=== PATIENT | female | born 1990 | race Hispanic/Latino ===

== ENCOUNTER 2016-07-20 22:58 | Emergency (ER) | payer OTHER ==
[~2016-07-20] VITALS: Ht 152.4 cm; Wt 63.8 kg
[~2016-07-20 22:58] MED LIST: ADVIL,NUPRIN,M200 MG PO; ALBUTEROL SULF8.5 GM IH; ALBUTEROL17 GM IH; ANUSOL HC,ANUCO25 MG PR; BACTRIM,SEPT1 TABLET PO; CAMILA0.35 MG PO; CLEOCIN300 MG PO; COLACE100 MG PO; DICLEGIS DR 101 EACH PO; FERROUS SULFAT325 MG PO; FLINTSTONES1 EACH PO; HYDROCODON-ACE1 EAC7 PO; IBUPROFEN800 MG PO; KEFLEX500 MG PO; LITHIUM CARBON300 M1 PO; LORATADINE10 M2 PO; MACROBID100 MG PO; MOTRIN800 MG PO; NAPROSYN500 MG PO; NO HOME MEDS; Natalcare Rx,Pramile PO; PREDNISONE10 M1 PO; PRENATAL TABLE1 EAC3 PO; PRENATAL VITAM1 EAC6 PO; PRENATAL1 EACH PO; Proventil,Ventolin H IH; TESSALON PERLE100 MG PO; TRAMADOL HCL50 MG PO; VICODIN 5-3001 EACH PO; ZOFRAN ODT4 MG PO; ZOFRAN4 MG PO
[2016-07-20 23:24] LABS: HEMATOCRIT 41.5 % (36.0-46.0); MCH 30.7 PG (29.0-34.0); MCHC 33.3 G/DL (30.0-36.0); MCV 92.2 FL (83-99); MEAN PLAT.VOLUME 10.8 uM^3 (9.5-12.4); PLATELET COUNT 183 K/uL (156-360); RBC DIS.WIDTH-CV 13.6 % (11.8-14.6); RBC DIS.WIDTH-SD 44.7 % (39-53); WHITE BLOOD COUNT 8.1 K/uL (4.1-10.2)
[2016-07-20 23:36] LABS: CHLORIDE 108 mEq/L (99-109); POTASSIUM 3.8 mEq/L (3.7-5.4); SODIUM 142 mEq/L (136-147)
[2016-07-20 23:38] LABS: GLUCOSE 84 mg/dL (70-99)
[2016-07-20 23:39] LABS: ANION GAP 8 MEQ/L (2-14)
[2016-07-20 23:40] LABS: TOTAL BILIRUBIN 0.3 mg/dL (0.0-1.0)
[2016-07-20 23:41] LABS: ALKALINE PHOSPHATASE 59 IU/L (3-129)
[2016-07-20 23:42] LABS: GFR ESTIMATE (CALCULATED) > 59 mL/min/
[2016-07-20 23:43] LABS: UREA NITROGEN (BUN) 9 mg/dL (9-23)
[2016-07-20 23:52] LABS: QUANTITATIVE HCG < 4.0 MIU/ML
[2016-07-21 00:23] LABS: ADD MIUA? YES; BILIRUBIN NEGATIVE; BLOOD SMALL; COLOR YELLOW ((YELLOW)); GLUCOSE (STRIP) NEGATIVE; KETONES NEGATIVE; LEUKOCYTES LARGE; NITRITE NEGATIVE; PROTEIN (STRIP) 30; SPECIFIC GRAVITY 1.018 (1.000-1.030); UROBILINOGEN 0.2 MG/DL (0.2-1.0)
[2016-07-21 01:31] LABS: BACTERIA NONE SEEN /HPF; EPITHELIAL CELLS 1+ /HPF; MUCUS TRACE /LPF; RED BLOOD CELLS 0-5 /HPF (0-5); UCUL ADDED? NO; WHITE BLOOD CELLS 0-5 /HPF (0-5)
[2016-07-21] MEDS ORDERED: ZOFRAN ODT4 MG PO (01:45)
[2016-07-21 02:02] VITALS: BP 106/67
== END 2016-07-21 02:04 | disposition home or self-care (01) ==
LOC: EME 22:58
DX: T50.995A Adverse effect of other drugs, medicaments and biological substances, initial encounter (principal); R11.0 Nausea; R42 Dizziness and giddiness
CPT/HCPCS: 80053; 81003; 84702; 85027; 99281; 99284

== ENCOUNTER 2016-09-14 00:23 | Emergency (ER) | payer OTHER ==
[~2016-09-14] VITALS: Ht 152.4 cm; Wt 63.5 kg
[2016-09-14 00:49] LABS: ADD MIUA? YES; BILIRUBIN NEGATIVE; BLOOD MODERATE; COLOR YELLOW ((YELLOW)); GLUCOSE (STRIP) NEGATIVE; KETONES NEGATIVE; LEUKOCYTES SMALL; NITRITE NEGATIVE; PROTEIN (STRIP) 30; SPECIFIC GRAVITY 1.029 (1.000-1.030); UROBILINOGEN 0.2 MG/DL (0.2-1.0)
[2016-09-14 00:53] LABS: BACTERIA NONE SEEN /HPF; EPITHELIAL CELLS 1+ /HPF; MUCUS TRACE /LPF; UCUL ADDED? NO; WHITE BLOOD CELLS 0-5 /HPF (0-5)
[2016-09-14 00:56] LABS: HEMATOCRIT 38.4 % (36.0-46.0); MCHC 33.1 G/DL (30.0-36.0); MCV 93.7 FL (83-99); RBC DIS.WIDTH-CV 12.7 % (11.8-14.6); RBC DIS.WIDTH-SD 43.8 % (39-53); WHITE BLOOD COUNT 7.4 K/uL (4.1-10.2)
[2016-09-14 01:07] LABS: CHLORIDE 103 mEq/L (99-109); POTASSIUM 3.7 mEq/L (3.7-5.4); SODIUM 135 mEq/L (136-147)
[2016-09-14 01:09] LABS: GLUCOSE 105 mg/dL (70-99)
[2016-09-14 01:11] LABS: ANION GAP 10 MEQ/L (2-14)
[2016-09-14 01:13] LABS: GFR ESTIMATE (CALCULATED) > 59 mL/min/
[2016-09-14 01:14] LABS: UREA NITROGEN (BUN) 13 mg/dL (9-23)
[2016-09-14 01:22] LABS: QUANTITATIVE HCG < 4.0 MIU/ML
[2016-09-14 01:50] LABS: MEAN PLAT.VOLUME 10.7 uM^3 (9.5-12.4); PLAT.SUFFICIENCY ADEQUATE; PLATELET COUNT 168 K/uL (156-360)
[2016-09-14] MEDS ORDERED: KEFLEX500 MG PO (01:50)
[2016-09-14] MEDS ORDERED: PYRIDIUM100 MG PO (01:51)
[2016-09-14 02:00] VITALS: BP 124/71
== END 2016-09-14 02:10 | disposition home or self-care (01) ==
LOC: RME 00:23 → EME 00:23 → RME 02:10
DX: R31.9 Hematuria, unspecified (principal); R30.0 Dysuria; M54.5 Low back pain; L29.8 Other pruritus; Z87.440 Personal history of urinary (tract) infections
CPT/HCPCS: 80048; 81003; 84702; 85027; 99281; 99284

== ENCOUNTER 2016-10-02 18:56 | Emergency (ER) | payer OTHER ==
[~2016-10-02] VITALS: Ht 157.5 cm; Wt 62.6 kg
[~2016-10-02 18:56] MED LIST changes: +PYRIDIUM100 MG PO
[2016-10-02] MEDS ORDERED: EPIPEN ADU0.3 MG/0.3 IM (21:50)
[2016-10-02] MEDS ORDERED: PEPCID20 MG PO (21:50)
[2016-10-02] MEDS ORDERED: BENADRYL50 MG PO (21:50)
[2016-10-02 22:08] VITALS: BP 108/64
== END 2016-10-02 22:09 | disposition home or self-care (01) ==
LOC: EME 18:56
DX: T78.1XXA Other adverse food reactions, not elsewhere classified, initial encounter (principal); L50.9 Urticaria, unspecified; L29.9 Pruritus, unspecified; R13.10 Dysphagia, unspecified; X58.XXXA Exposure to other specified factors, initial encounter; Z91.018 Allergy to other foods; Z91.013 Allergy to seafood
CPT/HCPCS: 99281; 99284; J1200; J2930; J7030; S0028

== ENCOUNTER 2016-10-04 01:05 | Emergency (ER) | payer OTHER ==
[~2016-10-04] VITALS: Ht 157.5 cm; Wt 62.7 kg
[~2016-10-04 01:05] MED LIST changes: +BENADRYL50 MG PO; +EPIPEN ADU0.3 MG/0.3 IM; +PEPCID20 MG PO
[2016-10-04 02:03] VITALS: BP 111/66
== END 2016-10-04 02:03 | disposition home or self-care (01) ==
LOC: EXP 01:05 → EME 01:05 → EXP 02:03
DX: L50.0 Allergic urticaria (principal)
CPT/HCPCS: 99281; 99283

== ENCOUNTER 2016-11-10 22:48 | Emergency (ER) | payer OTHER ==
[~2016-11-10] VITALS: Ht 152.4 cm; Wt 64.4 kg
[2016-11-10] MEDS ORDERED: AUGMENTIN875 MG PO (23:01)
[2016-11-10 23:09] VITALS: BP 112/74
== END 2016-11-10 23:10 | disposition home or self-care (01) ==
LOC: EME 22:48 → EXP 22:48
DX: R51 Headache (principal); J01.90 Acute sinusitis, unspecified; F31.9 Bipolar disorder, unspecified
CPT/HCPCS: 99281; 99283

== ENCOUNTER 2017-01-18 07:28 | Day surgery (SDC) | payer OTHER ==
[~2017-01-18] VITALS: Ht 152.4 cm; Wt 63.8 kg
[2017-01-18] VITALS (7 sets, daily range): BP systolic 99–113; BP diastolic 55–70
[~2017-01-18 07:28] MED LIST changes: +AUGMENTIN875 MG PO
[2017-01-18 08:32] LABS: HEMATOCRIT 38.3 % (36.0-46.0)
[2017-01-18] MEDS ORDERED: MOTRIN800 MG PO (11:45)
[2017-01-18] MEDS ORDERED: PERCOCET 5/31 TABLET PO (11:45)
[2017-01-19 03:22] VITALS: BP 90/56
[2017-01-19 08:00] VITALS: BP 107/59
== END 2017-01-19 14:31 | disposition home or self-care (01) ==
LOC: SDC 07:28 → ENRESERV 17:00 → 2SOUTH 17:01 → 2EAST 17:01 → ENRESERV 17:11 → 2EAST 17:44
PROVIDERS: Obstetrics & Gynecology
PROC: 0TSD0ZZ Reposition Urethra, Open Approach (ICD-10-PCS; principal; 2017-01-18)
DX: N39.3 Stress incontinence (female) (male) (principal); N93.9 Abnormal uterine and vaginal bleeding, unspecified; F32.9 Major depressive disorder, single episode, unspecified; Z82.49 Family history of ischemic heart disease and other diseases of the circulatory system; Z83.3 Family history of diabetes mellitus
CPT/HCPCS: 84702; 85014; 85018; 86850; 86900; 86901; C1771; G0378; J0690; J1100; J1170; J1885; J2175; J2250; J2405; J2710; J3010

== ENCOUNTER 2017-01-26 13:24 | Emergency (ER) | payer OTHER ==
[~2017-01-26] VITALS: Ht 152.4 cm; Wt 61.0 kg
[~2017-01-26 13:24] MED LIST changes: +PERCOCET 5/31 TABLET PO
[2017-01-26] MEDS ORDERED: ZOVIRAX5 GM TP (15:08)
[2017-01-26] MEDS ORDERED: TESSALON PERLE100 MG PO (15:08)
[2017-01-26 15:41] VITALS: BP 105/77
== END 2017-01-26 15:42 | disposition home or self-care (01) ==
LOC: EME 13:24
DX: J06.9 Acute upper respiratory infection, unspecified (principal); B00.1 Herpesviral vesicular dermatitis; R51 Headache; R00.0 Tachycardia, unspecified
CPT/HCPCS: 71020; 99281; 99283

== ENCOUNTER 2017-03-07 15:45 | Emergency (ER) | payer OTHER ==
[~2017-03-07] VITALS: Ht 152.4 cm; Wt 60.0 kg
[~2017-03-07 15:45] MED LIST changes: +ZOVIRAX5 GM TP
[2017-03-07 17:01] LABS: ADD MIUA? YES; BILIRUBIN NEGATIVE; BLOOD LARGE; COLOR YELLOW ((YELLOW)); GLUCOSE (STRIP) NEGATIVE; KETONES 20; LEUKOCYTES MODERATE; NITRITE NEGATIVE; PROTEIN (STRIP) 100; SPECIFIC GRAVITY 1.029 (1.000-1.030)
[2017-03-07 17:02] LABS: INTERNAL CONTROL VALID? YES
[2017-03-07 17:18] LABS: BACTERIA RARE /HPF; EPITHELIAL CELLS RARE /HPF; HYALINE CASTS 0-5 /LPF; MUCUS 2+ /LPF; RED BLOOD CELLS TNTC /HPF (0-5); UCUL ADDED? YES; UNCLASSIFIED CRYSTALS 1+ /HPF; WHITE BLOOD CELLS TNTC /HPF (0-5)
[2017-03-07] MEDS ORDERED: PYRIDIUM200 MG PO (17:45)
[2017-03-07] MEDS ORDERED: KEFLEX500 MG PO (17:45)
[2017-03-07 17:54] VITALS: BP 111/77
== END 2017-03-07 17:55 | disposition home or self-care (01) ==
LOC: EME 15:45
PROVIDERS: Nurse Practitioner Family
DX: N30.90 Cystitis, unspecified without hematuria (principal); J45.909 Unspecified asthma, uncomplicated; F32.9 Major depressive disorder, single episode, unspecified; F41.9 Anxiety disorder, unspecified
CPT/HCPCS: 81003; 84703; 87086; 99281; 99285

== ENCOUNTER 2017-04-19 07:37 | Emergency (ER) | payer OTHER ==
[~2017-04-19] VITALS: Ht 152.4 cm; Wt 59.3 kg
[~2017-04-19 07:37] MED LIST changes: +PYRIDIUM200 MG PO
[2017-04-19 11:52] LABS: ADD MIUA? YES; BILIRUBIN NEGATIVE; BLOOD MODERATE; COLOR YELLOW ((YELLOW)); GLUCOSE (STRIP) NEGATIVE; KETONES NEGATIVE; LEUKOCYTES TRACE; NITRITE NEGATIVE; PROTEIN (STRIP) 30; SPECIFIC GRAVITY 1.026 (1.000-1.030); UROBILINOGEN 0.2 MG/DL (0.2-1.0)
[2017-04-19 12:07] LABS: BACTERIA RARE /HPF; EPITHELIAL CELLS RARE /HPF; MUCUS 4+ /LPF; WHITE BLOOD CELLS 0-5 /HPF (0-5)
[2017-04-19] MEDS ORDERED: NORCO 5/3251 TABLET PO (12:32)
[2017-04-19 12:38] VITALS: BP 93/64
[2017-04-21 13:11] LABS: CHLAMYDIA TRACHOMATIS NEGATIVE; NEISSERIA GONORRHOEAE NEGATIVE
== END 2017-04-19 12:39 | disposition home or self-care (01) ==
LOC: EME 07:37
PROVIDERS: Physician Assistant
DX: N93.9 Abnormal uterine and vaginal bleeding, unspecified (principal); R10.2 Pelvic and perineal pain; J45.909 Unspecified asthma, uncomplicated; F41.9 Anxiety disorder, unspecified; F32.9 Major depressive disorder, single episode, unspecified; F31.9 Bipolar disorder, unspecified
CPT/HCPCS: 81003; 84702; 87210; 87491; 87591; 99281; 99284